=== PATIENT | female | born 1945 | race Caucasian/White ===

== ENCOUNTER 2021-05-20 11:21 | Outpatient (CLI) | payer BC | END 2021-05-20 11:22 | disposition home or self-care (01) | LOC: CSHMAMMO 11:21 | PROVIDERS: ATTEND Family Medicine | DX: Z12.31 Encounter for screening mammogram for malignant neoplasm of breast (principal); Z98.890 Other specified postprocedural states; Z80.3 Family history of malignant neoplasm of breast | CPT/HCPCS: 77063; 77067 ==

== ENCOUNTER 2021-10-28 09:41 | Outpatient (CLI) | payer BC | END 2021-10-28 09:42 | disposition home or self-care (01) | LOC: CSHCT 09:41 | PROVIDERS: ATTEND Internal Medicine Cardiovascular Disease | DX: Z01.810 Encounter for preprocedural cardiovascular examination (principal); I48.0 Paroxysmal atrial fibrillation | CPT/HCPCS: 71275; 82565 ==

== ENCOUNTER 2022-05-21 10:43 | Outpatient (CLI) | payer BC | END 2022-05-21 10:44 | disposition home or self-care (01) | LOC: CSHMAMMO 10:43 | PROVIDERS: ATTEND Family Medicine Sports Medicine | DX: Z12.31 Encounter for screening mammogram for malignant neoplasm of breast (principal); Z80.3 Family history of malignant neoplasm of breast; Z98.82 Breast implant status | CPT/HCPCS: 77063; 77067 ==

== ENCOUNTER 2023-04-06 07:19 | Day surgery (SDC) | payer BC ==
[2023-04-04 14:41] VITALS: BMI 24.2
[2023-04-04 15:06] LABS: Hemoglobin 13.4 g/dL (12.0-15.5); Mean Corpuscular Hemoglobin 30.3 pg (27.0-33.0); Mean Corpuscular Volume 91.9 fl (81.6-98.3); Mean Platelet Volume 8.8 fl (7.4-10.4); Platelet Count 159 10x3/uL (150-450); Red Blood Cell (RBC) Count 4.42 10x6/uL (3.90-5.03); White Blood Cell (WBC) Count 6.5 10x3/uL (3.5-10.5)
[2023-04-06] MEDS ORDERED: CeleCOXIB 100 MG CAP ONE (07:38)
[2023-04-06] MEDS ORDERED: Gabapentin 300 MG CAP ONE (07:39)
[2023-04-06] MEDS ORDERED: Famotidine/PF 20 mg/2ml Vial ONE ×2 (07:39→09:22)
[2023-04-06] MEDS ORDERED: Acetaminophen 500 MG TAB ONE (08:43)
[2023-04-06] MEDS ORDERED: Bupivacaine PF 0.5% 30 ML VIAL ONE (09:16)
[2023-04-06] MEDS ORDERED: SUGAMMADEX SODIUM 200 MG/2 ML VIAL ONE (09:21)
[2023-04-06] MEDS ORDERED: Propofol 1,000 MG/100 ML VIAL IV ONE (09:21)
[2023-04-06] MEDS ORDERED: CEFAZOLIN 2 GM VIAL ONE (09:27)
[2023-04-06] MEDS ORDERED: metroNIDAZOLE 500 MG/100 ML BAG ONE (09:27)
[2023-04-06] MEDS ORDERED: fentaNYL 50 mcg/mL 1 mL Vial ONE (09:29)
[2023-04-06] MEDS ORDERED: Rocuronium Bromide 10 MG/ML (10ML VIAL) ONE (09:30)
[2023-04-06] MEDS ORDERED: Ondansetron PF 4 MG/2 ML Vial ONE (09:31)
[2023-04-06] MEDS ORDERED: Dexamethasone 4 mg/ml Vial ONE (09:31)
[2023-04-06] MEDS ORDERED: Ketorolac Tromethamine 30 MG/ML VIAL ONE (09:32)
[2023-04-06] MEDS ORDERED: Bupivacaine HCl 0.5%/Epinephrine 1:200,000/PF 30 ml Vial ONE (10:20)
[2023-04-06] MEDS ORDERED: ePHEDrine Sulfate 50 MG/10 ML VIAL ONE (10:30)
[2023-04-06] MEDS ORDERED: HYDROcodone/Acetaminophen 5/325 mg Tablet ONE (12:21)
== END 2023-04-06 13:05 | disposition home or self-care (01) ==
LOC: CSHSDC 07:19
PROVIDERS: ATTEND Obstetrics & Gynecology
PROC: 0UB74ZZ Excision of Bilateral Fallopian Tubes, Percutaneous Endoscopic Approach (ICD-10-PCS; principal; 2023-04-06)
PROC: 0UB24ZZ Excision of Bilateral Ovaries, Percutaneous Endoscopic Approach (ICD-10-PCS; principal; 2023-04-06)
PROC: 0UT94ZZ Resection of Uterus, Percutaneous Endoscopic Approach (ICD-10-PCS; principal; 2023-04-06)
DX: D25.9 Leiomyoma of uterus, unspecified (principal); N84.0 Polyp of corpus uteri; N80.03 Adenomyosis of the uterus; N83.292 Other ovarian cyst, left side; N83.291 Other ovarian cyst, right side; I10 Essential (primary) hypertension; I48.91 Unspecified atrial fibrillation; E78.5 Hyperlipidemia, unspecified; E03.9 Hypothyroidism, unspecified; Z79.890 Hormone replacement therapy; Z79.899 Other long term (current) drug therapy; Z79.01 Long term (current) use of anticoagulants
CPT/HCPCS: 85027; 86850; 86900; 86901; 88307; C9250; J1100; J1885; J2405; J2704; J3010; S0020; S0028

== ENCOUNTER 2023-05-24 12:51 | Outpatient (CLI) | payer BC | END 2023-05-24 12:52 | disposition home or self-care (01) | LOC: CSHMAMMO 12:51 | PROVIDERS: ATTEND Family Medicine Sports Medicine | DX: Z12.31 Encounter for screening mammogram for malignant neoplasm of breast (principal); Z80.3 Family history of malignant neoplasm of breast | CPT/HCPCS: 77063; 77067 ==

== ENCOUNTER 2024-05-31 08:27 | Outpatient (CLI) | payer BC | END 2024-05-31 08:28 | disposition home or self-care (01) | LOC: CSHMAMMO 08:27 | PROVIDERS: ATTEND Family Medicine Sports Medicine | DX: Z12.31 Encounter for screening mammogram for malignant neoplasm of breast (principal); Z80.3 Family history of malignant neoplasm of breast; Z98.890 Other specified postprocedural states | CPT/HCPCS: 77067 ==

== ENCOUNTER 2025-06-03 10:56 | Outpatient (CLI) | payer BC | END 2025-06-03 10:57 | disposition home or self-care (01) | LOC: CSHMAMMO 10:56 | PROVIDERS: ATTEND Family Medicine Sports Medicine | DX: Z12.31 Encounter for screening mammogram for malignant neoplasm of breast (principal); Z80.3 Family history of malignant neoplasm of breast; Z98.890 Other specified postprocedural states | CPT/HCPCS: 77063; 77067 ==